=== PATIENT | female | born 1990 | race Caucasian/White ===

== ENCOUNTER 2019-01-13 18:52 | Emergency (ER) | payer BC ==
[~2019-01-13] VITALS: Ht 167.6 cm; Wt 59.0 kg
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
--- NOTE | 2019-01-13 19:43 | NUR ---
Dr. Murillo at bedside for MSE
--- NOTE | 2019-01-13 19:55 | NUR ---
Neck collar applied per Dr. Murillo. Patient tolerated well
[2019-01-13] MEDS ORDERED: KETOROLAC TROMETHAMINE 30 MG INJ ONE (19:56)
[2019-01-13] MEDS ORDERED: KETOROLAC TROMETHAMINE 30 MG INJ IM ONE (20:00)
[2019-01-13 20:53] VITALS: BP 107/68
--- NOTE | 2019-01-13 20:55 | NUR ---
PATIENT GIVEN D/C INSTRUCTIONS VERBALIZES UNDERSTANDING LEFT ACCOMPANIED BY FAMILY.
== END 2019-01-13 21:00 | disposition home or self-care (01) ==
LOC: ER 18:52
DX: S13.4XXA Sprain of ligaments of cervical spine, initial encounter (principal); M54.42 Lumbago with sciatica, left side; R51 Headache; R20.2 Paresthesia of skin; F32.9 Major depressive disorder, single episode, unspecified; V43.62XA Car passenger injured in collision with other type car in traffic accident, initial encounter; Y93.89 Activity, other specified; Y92.89 Other specified places as the place of occurrence of the external cause; Y99.8 Other external cause status
CPT/HCPCS: 72040; 96372; 99283; J1885; A4663